=== PATIENT | male | born 1995 | race Caucasian/White ===

== ENCOUNTER → 2016-07-17 08:33 | Day surgery (SDC) | payer BC ==
[~2016-07-17 08:33] MED LIST: Buffered Lidocaine 1% SYR 3ML* 3 ML/SYR SYRINGE INTRADERM ONE; Buffered Lidocaine 1% SYR 3ML* 3 ML/SYR SYRINGE ONE; Bupivacaine 0.25% EPI 200,000* 30 ML SDV ONE; Bupivacaine 0.25% SDV* 30 ML ONE; Dexamethasone IV* 4 MG/ML 1 ML (4 MG) ONE; DiMENhydriNATE IV* 50 MG/ML VIAL IV PUSH PRN; Famotidine IV * 20 MG in NS 0.9% 100 ML* 100 ML IVPB ONE; Famotidine IV* 10 MG/ML 2 ML (20 mg) ONE; HYDROmorphone INJ* 1 MG/ML CARPUJECT SYRINGE IV PRN; HYDROmorphone INJ* 1 MG/ML CARPUJECT SYRINGE ONE; Ketorolac INJ* 30 MG/ML 1 ML VIAL ONE; Lidocaine 2% PF * 5 ML VIAL ONE; Midazolam* 1 MG/ML 5 ML VIAL (5 MG) ONE; Ondansetron INJ* 2 MG/ML VIAL ONE; Propofol* 10 MG/ML 20 ML BTL IV PUSH ONE; ceFAZolin 2 GM PREMIX (*) 2 GM/50 ML BAG IVPB ONE; fentaNYL* 50 MCG/ML 2 ML VIAL (100 MCG VIAL) ONE; oxyCODONE/Acetamin 5/325 MG* TAB PO PRN
[2016-07-17 12:55] VITALS: BP 123/73
--- NOTE | 2016-07-17 23:13 | OP ---
DATE OF OPERATION: 07/17/16 - [facility] DATE OF : [birth year] SURGEON: Kieran Garcia MD FIRESETTER: MARY Mills. An therapy administrative assistant was needed for the entirety of the case to help with positioning, retraction, and closure. ANESTHESIOLOGIST: Dr. Watts. ANESTHESIA: General. PRE-OP DIAGNOSIS: Right knee ankylosis, status post ACL reconstruction that was a revision and lateral meniscus repair as well as symptomatic hardware. POST-OP DIAGNOSIS: OPERATIVE PROCEDURES: Right knee arthroscopy with lysis of adhesions, chondroplasty of the lateral tibial plateau, stable ACL graft, removal of loose body, and removal of hardware. COMPLICATIONS: None. ESTIMATED BLOOD LOSS: Minimal. INDICATIONS: Facundo Andres is a 21-year-old male who is status post revision ACL reconstruction with quad tendon autograft that was done in February. He also had a lateral meniscus repair that was done at the same time. He was unable to get his full extension back in rehab and he was noticing some tenderness about the washer and post construct that was in the tibia. After extensive discussion as well as failing conservative management, the patient has agreed to proceed with right knee lysis of adhesions, removal of hardware, and surgery as indicated. The risks and benefits were discussed at length. They included but are not limited to bleeding, bleeding, infection, damage to nerves, vessels, surrounding structures, wound not healing, persistent pain, need for further surgery, and stiffness. DESCRIPTION OF PROCEDURE: The patient was greeted in the preoperative area by the attending surgeon. The correct extremity was marked and consent was confirmed. The patient was brought back to the operating suite where he was placed in supine position on the operating table. He then underwent general anesthesia and LMA intubation which he tolerated without difficulty after which a nonsterile tourniquet was placed high on the proximal thigh. The knee was examined and found to have range of motion for about 2 degrees to 125 degrees, stable to varus and valgus stress, stable Amelia, negative posterior drawer. No effusion. The right leg was then prepped and draped in the usual sterile fashion beginning with a pre- scrub of chlorhexidine soap and a wipe of alcohol and a final prep of ChloraPrep. After appropriate surgical pause indicating site, side, procedure, and administration of antibiotics, the standard nagi-lateral portal was made sharply with an 11 blade. The scope was introduced into the joint. There was abundant scar and fat pad that was present anteriorly. There were loose fibers of the ACL that were apparent as well. A medial portal was then made in an outside-in fashion. A shaver was used to debride some of the unstable torn fragments of the torn ACL fibers. The knee was then placed in suprapatellar pouch. The patella had grade 0 to 1 changes. The trochlea had grade 1 changes with some areas of grade 2 changes. The medial and lateral gutters were clear. The scope was brought into the notch and again, the fibers were identified. The remainder of the ACL was intact, although had some evidence of healing. The sutures from the graft in the tibial portion were evident as well as the [employer] screw, which was somewhat prominent in the joint. Decision was made to remove this. Arthroscopic nirali was then used to remove these or whittle away the prominent portion of the screw and thus remove the foreign body. The VAPR was then used to remove the dense scar that was anterior and around the medial portal. After this was complete, the compartments were examined. The medial compartment had previous subtotal meniscectomy with grade 1 to 2 changes in the medial femoral condyle, medial tibial plateau. The knee was placed in a [id number] position. He had a previous lateral meniscus. This was probed and found to have slight give, but not full subluxation. There was one unstable flap and this was debrided back using the shaver. The lateral tibial plateau had grade 2 changes of unstable flaps, which were debrided back using the shaver. Lateral femoral condyle had grade 1 changes. The remainder of the knee was examined. There were no other pathological concerns. At this point, attention was directed to the tibial wound where the prominent screw was. A 15 blade was used to make a separate incision just over the symptomatic hardware. The soft tissues were carefully dissected and exposed the abundant knot stack that was present from the #5 Ethibond sutures. These were then sharply incised. The screw was identified and removed with the washer completely. At this point, the scope was repositioned into the joint and the knee was taken through range of motion on the anterior drawer and the graft was found to be stable. At this point, all fluid and debris were removed from the knee. Range of motion was assessed and again, it was from 0 to 125 degrees. The wounds were copiously irrigated with sterile saline. The tibial wound was closed in layers with 2-0 Vicryl, 3-0 nylon, and the portals with 3-0 nylon. Sterile dressings were applied and 0.25% Marcaine plain was injected into the joint and then in the wound. Sterile dressings were applied. He was awoken from anesthesia and transferred back in stable condition. POSTOPERATIVE PLAN: He will be weightbearing as tolerated. He will have to work on range of motion. He should get back into therapy in the next 1 to 2 weeks. He is not allowed to run or jump or do any pivoting exercises. DVT prophylaxis is considered, but deferred due to no previous, personal, or family history. I will discharge the patient on pain medication and antibiotics and see the patient back in 10 to 14 days. [id number]/[facility] #: [id number] MTDD
== END | disposition home or self-care (01) ==
LOC: OREAST 08:33
PROVIDERS: ATTEND Orthopaedic Surgery
DX: M24.661 Ankylosis, right knee (principal); T84.84XA Pain due to internal orthopedic prosthetic devices, implants and grafts, initial encounter; Y83.1 Surgical operation with implant of artificial internal device as the cause of abnormal reaction of the patient, or of later complication, without mention of misadventure at the time of the procedure
CPT/HCPCS: 88300; J0690; J1100; J1170; J1885; J2250; J2405; J2704; J3010

== ENCOUNTER 2017-12-31 06:48 | Day surgery (SDC) | payer BC ==
--- NOTE | 2017-12-28 20:26 | HP ---
HISTORY AND PHYSICAL: DATE OF ADMISSION: DATE OF SERVICE: 12/25/17 HISTORY OF PRESENT ILLNESS: Briefly, Facundo Andres is a 22-year-old male who I have seen previously for his right knee. I took care of him in 2016 when we did a revision ACL reconstruction with quad autograft as well as a meniscus repair. Just after surgery due to noncompliance, he underwent a lysis of adhesions. He did much better until a few weeks ago when he was lying on his side and had his knee get stuck in a position he was unable to get it unstuck. He did stuck it 2 or 3 times since his last surgery. It is laterally based. He states that he was just sitting on a couch and he was swinging his legs over. 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 He denies any numbness or tingling. No fevers or chills. He has had no changes to his medical history. PAST MEDICAL HISTORY: Significant for blood clot after his initial ACL surgery. PAST SURGICAL HISTORY: Significant for right knee partial meniscectomy in 2006 , ACL reconstruction in 2012, revision ACL with meniscus surgery in 2016 with quad autograft. MEDICATIONS: Include p.r.n. ibuprofen. ALLERGIES: None. FAMILY HISTORY: Negative. SOCIAL HISTORY: He works for a [employer] and is applying for the police academy. . He denies tobacco and alcohol. He is trying to get into a police academy. REVIEW OF SYSTEMS: A 14-point review of systems reviewed with the patient, significant only for the above complaint, otherwise remainder of the systems is negative. PHYSICAL EXAMINATION GENERAL: He is in no acute distress. He is well developed and well nourished. He is alert and oriented x3. He has pleasant mood and normal affect. Good balance and coordination of the extremities. HEENT: EOMI. CHEST: Clear to auscultation. HEART: Regular rate and rhythm. ABDOMEN: Soft, nontender. EXTREMITIES: Examination of the right knee demonstrates well-healed incisions. There is a mild effusion. There is no erythema or warmth. Range of motion demonstrates pain in full extension with flexion to about 100 degrees with pain in deep flexion laterally. He appears to have a 1A Amelia. Negative posterior drawer. Stable to varus-valgus stress. Sensate to light touch about the first dorsal webspace, medial, lateral, dorsal and plantar foot. Brisk cap refill. Calf is soft and nontender. DIAGNOSTIC STUDIES: X-rays and MRI were obtained prior to him seeing me and ordered by my partner, Dr. Salas, demonstrate that the ACL was not intact. He does have a bucket handle lateral meniscus tear. There is some mild chondrosis of the knee itself. Also, the lateral meniscus tear is a new finding as he did have this reconstructed in the revision surgery. ASSESSMENT AND PLAN: He has unfortunately a bucket handle lateral meniscus tear. On the MRI, it looks like his ACL is completely ruptured, although on his exam he does not have that and he feels completely stable. We are going to plan for a right knee arthroscopy with meniscus surgery. Risks and benefits were discussed at length and included, but not limited to, bleeding; infection; damage to nerves, vessels, and surrounding structures; wound nonhealing; excessive pain; need for further surgery; scarring; stiffness; incomplete relief of symptoms; risk of anesthesia. We will plan for surgery at his earliest convenience. He does have history of deep venous thrombosis, so we will place him on something for deep venous thrombosis, but he is asking particularly other than Lovenox shot and perhaps, I will try course of Xarelto. I will see the patient back 14 days postop. [id number]/[facility] #: [id number] KAHLIL
[~2017-12-31 06:48] MED LIST changes: +Buffered Lidocaine 0.9% SYRIN* 5 ML/SYR SYRINGE INTRADERM ONE; -Buffered Lidocaine 1% SYR 3ML* 3 ML/SYR SYRINGE INTRADERM ONE; -Buffered Lidocaine 1% SYR 3ML* 3 ML/SYR SYRINGE ONE; -Bupivacaine 0.25% EPI 200,000* 30 ML SDV ONE; -Bupivacaine 0.25% SDV* 30 ML ONE; +Dexamethasone IV* 4 MG/ML 1 ML (4 MG) IV SLOW PU ONE; -Dexamethasone IV* 4 MG/ML 1 ML (4 MG) ONE; -DiMENhydriNATE IV* 50 MG/ML VIAL IV PUSH PRN; -Famotidine IV * 20 MG in NS 0.9% 100 ML* 100 ML IVPB ONE; +Famotidine IV* 10 MG/ML 2 ML (20 mg) IV ONE; -Famotidine IV* 10 MG/ML 2 ML (20 mg) ONE; -HYDROmorphone INJ* 1 MG/ML CARPUJECT SYRINGE IV PRN; -HYDROmorphone INJ* 1 MG/ML CARPUJECT SYRINGE ONE; -Ketorolac INJ* 30 MG/ML 1 ML VIAL ONE; -Lidocaine 2% PF * 5 ML VIAL ONE; -Midazolam* 1 MG/ML 5 ML VIAL (5 MG) ONE; -Ondansetron INJ* 2 MG/ML VIAL ONE; +Ondansetron ODT TAB* 4 MG SL PRN; -Propofol* 10 MG/ML 20 ML BTL IV PUSH ONE; -ceFAZolin 2 GM PREMIX (*) 2 GM/50 ML BAG IVPB ONE; -fentaNYL* 50 MCG/ML 2 ML VIAL (100 MCG VIAL) ONE; -oxyCODONE/Acetamin 5/325 MG* TAB PO PRN
[2017-12-31] MEDS ORDERED: Bupivacaine 0.5% PF 10 ML VIAL INJ ONE (07:25)
[2017-12-31] MEDS ORDERED: Lidocaine 1% MPF wEPI 200,000* 30 ML SDV ONE (07:25)
[2017-12-31] MEDS ORDERED: Saline, Bacteriostatic* 30 ML VIAL ONE (07:25)
[2017-12-31] MEDS ORDERED: ceFAZolin 2 GM PREMIX (*) 2 GM/50 ML BAG IVPB ONE (07:29)
[2017-12-31] MEDS ORDERED: Famotidine IV* 10 MG/ML 2 ML (20 mg) ONE (07:29)
[2017-12-31] MEDS ORDERED: Dexamethasone IV* 4 MG/ML 1 ML (4 MG) ONE (07:29)
[2017-12-31] MEDS ORDERED: Midazolam* 1 MG/ML 5 ML VIAL (5 MG) ONE (08:08)
[2017-12-31] MEDS ORDERED: fentaNYL* 50 MCG/ML 5 ML VIAL (250 MCG VIAL) ONE (08:08)
[2017-12-31] MEDS ORDERED: Atracurium* 10 MG/ML 10 ML VIAL ONE (08:08)
[2017-12-31] MEDS ORDERED: Propofol* 10 MG/ML 20 ML BTL IV PUSH ONE (08:09)
[2017-12-31] MEDS ORDERED: Lidocaine 2% PF * 5 ML VIAL ONE (08:09)
[2017-12-31] MEDS ORDERED: Ketorolac INJ* 30 MG/ML 1 ML VIAL ONE (08:09)
[2017-12-31] MEDS ORDERED: Glycopyrrolate IV* 0.2 MG/ML 1 ML VIAL ONE (08:39)
[2017-12-31] MEDS ORDERED: oxyCODONE/Acetamin 5/325 MG* TAB PO PRN (08:53)
[2017-12-31] MEDS ORDERED: DiMENhydriNATE IV* 50 MG/ML VIAL IV PUSH PRN (08:53)
[2017-12-31] MEDS ORDERED: Ondansetron INJ* 2 MG/ML VIAL IV PRN (08:53)
[2017-12-31] MEDS ORDERED: Naloxone* 0.4 MG/ML 1 ML VIAL IV PRN (08:53)
[2017-12-31] MEDS ORDERED: fentaNYL* 50 MCG/ML 2 ML VIAL (100 MCG VIAL) IV PRN (08:53)
[2017-12-31 10:58] VITALS: BP 119/85
--- NOTE | 2018-01-01 12:08 | OP ---
CC: PCP (?) DATE OF OPERATION: 12/31/17 - [facility] DATE OF : [birth year] SURGEON: Kieran Garcia MD TELEVISION SERVICE ENGINEER: None available. PRE-OP DIAGNOSES: Right knee lateral meniscus bucket-handle tear and possible anterior cruciate ligament insufficiency, failure of the anterior cruciate ligament revision surgery. POST-OP DIAGNOSES: Lateral bucket-handle meniscus tear as well as incompetent anterior cruciate ligament. OPERATIVE PROCEDURE: Right knee arthroscopy with partial lateral meniscectomy. INDICATIONS: Facundo Andres is a 22-year-old male, who is well known to us , I did his revision surgery almost 2 years ago for his ACL reconstruction with a bucket-handle lateral meniscus tear. At that time, he did well after surgery. I did take him back in the spring of last year due to stiffness and lysis of adhesions. His graft was still intact. His lateral meniscus was still intact. At that time, he was back to activities. A few weeks ago, he was getting out of a couch or recliner from a hyperflexed fashion and noticed that the lateral aspect of his knee locked again. He was unable to unlock and had swelling and difficulty weightbearing. An MRI demonstrated that lateral meniscus had bucket handled and was incarcerated in the notch and also that the ACL was not intact. After extensive discussion with the patient including the risks and benefits of surgical versus nonoperative treatment including, but are not limited to, bleeding; infection; damage to nerves, vessels, surrounding structures; wound nonhealing; persistent pain; need for further surgery; scarring; stiffness; incomplete relief of symptoms; risk of anesthesia; risk of DVT. The patient has a prior history of DVT and will be on Xarelto for a short while after surgery. COMPLICATIONS: None. ESTIMATED BLOOD LOSS: Minimal. DESCRIPTION OF PROCEDURE: The patient was greeted in the preoperative area by the attending surgeon. The correct extremity was marked and the consent was confirmed. The patient was brought back to the operating suite, where he was placed in the supine position on the operating table. He then underwent general anesthesia, LMA intubation after which examination was done and was found to have 1A Amelia with a firm endpoint. There was a small effusion, stable to varus valgus stress, range of motion was 2 degrees to 130 degrees. The leg was then prepped and draped in the usual sterile fashion beginning with chlorhexidine soap, scrub, and alcohol wipe and a final prep of ChloraPrep. After appropriate surgical pause, indicating side, site, procedure, and administration of antibiotics, the knee was intra-articularly injected with 1% lidocaine with epi. The anterolateral portal was made sharply with an 11 blade. Scope was then introduced into the joint. Joint was examined. There were some mild chondral changes to the patellofemoral joint. The medial and lateral gutters were intact. The PCL was intact, the ACL had very few fibers still in continuity a larger portion was scarred to the PCL and the remainder of it was just reabsorbed. Medial compartment was examined, had some mild chondral changes. Medial meniscus was completely absent because of the previous subtotal medial meniscectomy. Lateral compartment demonstrated a flipped bucket -handle tear of the lateral meniscus with poor tissue quality not amenable to repair. At this point, the arthroscopic biters and francoise were used to debride the meniscus and thus a partial meniscectomy was done. There were grade 1 changes of the lateral compartment. Once this was completed, there was no evidence of unstable flap. The ACL, again, was examined and it was completely reabsorbed. At this point, the knee was thoroughly lavaged. The wounds were copiously irrigated with sterile saline. The wounds were closed with 3-0 nylon. Sterile dressings were applied. The patient had his own Cryo/ Cuff and therefore none was placed. He was awoken from anesthesia and transferred to PACU in stable condition. POSTOPERATIVE PLAN: He will be weightbearing as tolerated. Range of motion as tolerated. We will plan for physical therapy approximately next week. He will be discharged on a short course of Xarelto, due to his previous history of DVT, as well as pain medications. I will see the patient back in 10 to 14 days. [id number]/[facility] #: [id number] [facility] DIVISIONCharisma
== END 2017-12-31 11:00 | disposition home or self-care (01) ==
LOC: OR 06:48
PROVIDERS: ATTEND Orthopaedic Surgery
DX: S83.251A Bucket-handle tear of lateral meniscus, current injury, right knee, initial encounter (principal); S83.511A Sprain of anterior cruciate ligament of right knee, initial encounter; X50.0XXA Overexertion from strenuous movement or load, initial encounter; Y92.009 Unspecified place in unspecified non-institutional (private) residence as the place of occurrence of the external cause; E66.9 Obesity, unspecified
CPT/HCPCS: J0690; J1100; J1885; J2001; J2250; J2704; J3010